=== PATIENT | female | born 2005 | race Caucasian/White ===

== ENCOUNTER 2024-03-05 05:00 | Emergency (ER) | payer BC, SELFPAY ==
[2024-03-05 05:02] VITALS: BP 135/90; PULSE 74; TEMP 36.5; O2SAT 99; BMI 36.0
--- NOTE | 2024-03-05 05:12 | ED.GENADUL1 ---
HPI HPI - General Adult General Chief complaint: Ear Stated complaint: L EAR PAIN Time Seen by Provider: 03/05/24 05:02 Source: patient Mode of arrival: walk-in Limitations: no limitations History of Present Illness HPI narrative: Otherwise healthy 18-year-old female to the emergency department chief complaint of ear pain. Patient reports left-sided ear pain over the last 24 hours. Worse throughout the night. No medications attempted at home. She has been doing a significant amount of swimming. She reports that she did have water in her ear at 1 point. She has been using [id number] ear drying drops without relief.She denies . Related Data Home Medications ?Medication ?Instructions ?Recorded ?Confirmed No Known Home Medications 03/05/24 03/05/24 Allergies Allergy/AdvReac Type Severity Reaction Status Date / Time No Known Drug Allergies Allergy Verified 03/05/24 05:06 Opioid HPI Opioid Management Most Recent Opioid Data: No Data to Display Review of Systems ROS Status of ROS 10 or more systems reviewed and unremarkable except as noted in history and below Exam Narrative Exam Narrative: VITALS: I have reviewed the triage vital signs. GENERAL: Well developed, well appearing adult in no acute distress. NEURO: Alert and oriented. Moves all extremities. Face is symmetric and expressive. EYES: PERRL. No scleral icterus or conjunctival injection. No discharge. HENT: Normocephalic, atraumatic. Hearing is grossly intact. Nares grossly patent and without discharge. Mucous membranes moist. Left external canal erythematous, discharge, small amount of debris. Right external canal normal. Both TMs without evidence of effusion. NECK: No JVD. Patient moves neck without restriction. EXTREMITIES: Symmetric muscle bulk. No joint swelling. No clubbing, cyanosis, or deformity. SKIN: Warm and dry. Normal turgor. No rash or lesions appreciated. PSYCH: Mood, affect, and interaction is appropriate to the setting. Constitutional Vital Signs, click to edit/add: Last Vital Signs Temp 97.7 F 03/05/24 05:02 Pulse 74 03/05/24 05:02 Resp 16 03/05/24 05:02 BP 135/90 03/05/24 05:02 Pulse Ox 99 03/05/24 05:02 Course Vital Signs Vital signs: Vital Signs Temperature 97.7 F 03/05/24 05:02 Pulse Rate 74 03/05/24 05:02 Respiratory Rate 16 03/05/24 05:02 Blood Pressure 135/90 03/05/24 05:02 Pulse Oximetry 99 03/05/24 05:02 Temperature 97.7 F 03/05/24 05:02 Pulse Rate 74 03/05/24 05:02 Respiratory Rate 16 03/05/24 05:02 Blood Pressure 135/90 03/05/24 05:02 Pulse Oximetry 99 03/05/24 05:02 Medical Decision Making MDM Narrative Medical decision making narrative: 18-year-old female with what appears to be uncomplicated otitis externa on the left. Ciprodex and ibuprofen. Return precautions sabrina. All questions were answered. The patient was discharged home. Discharge Plan Discharge Stand Alone Forms: Portal Instructions Chief Complaint: Ear Clinical Impression: Otitis externa Patient Disposition: Home, Self-Care Time of Disposition Decision: 05:08 Condition: Good Mode of Transportation: Private Vehicle Prescriptions / Home Meds: No Action No Known Home Medications Print Language: Portuguese Instructions: Swimmer's Ear (ED) Additional Instructions: Place 4 drops in the affected ear 2 times daily for 7 days. Use Tylenol or ibuprofen per [id number] label instructions for discomfort. Follow-up with your doctor if symptoms do not improve or worsen. Call the office of your primary care doctor to arrange for follow-up within the above-stated timeframe. Follow-up with your primary care doctor about this ED visit. You should review your labs, imaging, and diagnoses from this ED visit with your primary care physician. There may be non-emergent findings that need further evaluation. If you were prescribed medications you should discuss possible side-effects and drug interactions with your pharmacist. Call 911 or go to the nearest Emergency Department if you develop any new or worsening symptoms.
[2024-03-05] MEDS: IBUPROFEN 600 MG TABLET PO (05:35)
[2024-03-05] MEDS: CIPROFLOXACIN HCL/DEXAMETH 0.3%/0.1% OTIC SUSP 150 DROP/7.5 ML BOTTLE OT (05:35)
== END 2024-03-05 05:52 | disposition home or self-care (01) ==
PROVIDERS: Emergency Provider Student in an Organized Health Care Education/Training Program
DX: H60.92 Unspecified otitis externa, left ear (principal)
CPT/HCPCS: 99282

== ENCOUNTER 2024-06-23 09:55 | Emergency (ER) | payer BC, SELFPAY ==
[2024-06-23 09:58] VITALS: BP 133/83; PULSE 106; TEMP 36.9; O2SAT 98; BMI 37.8
--- OUTSIDE RECORDS SUMMARY | 2024-06-23 10:07 | XMS_ITS | CCD ---
Author Organization [facility] Care Team Providers Care Cutter V Groove Name Role Phone Juan M MURPHY Primary Care Physician SRUTHI WU Attending Unavailable SRUTHI WU Admitting Unavailable Xu Richmond Attending Unavailable TIFFANY, DR KWAN Admitting Unavailable TIFFANY, DR KWAN Consulting Unavailable TIFFANY, DR KWAN Attending Unavailable REQUEST, DR PERAZA LISTED Primary Care Unavaila DAMIÁN Barrios Consulting Unavailable REQUEST, DR PERAZA LISTED Primary Care Unavaila COMPA Blanca Admitting Unavailable COMPA MCLEAN Attending Unavailable RADHA CARMONA Consulting Unavailable Mell Holt Unavailable Sherine Harris Unavailable Medications Current Medications Medication Drug Class(es) Dates Sig (Normalized) Sig (Original) folic acid 0.4 mg oral tablet (1 source) take 1 tablet by dillan th every twenty-four hours Folate 400 MCG 1 tablet Orally Once a day Active Vitamin B12 1000 MCG (1 source) take 1 tablet by dillan th once daily Vitamin B12 1000 MCG 1 tablet Orally Once a day Active Completed/Discontinued Medications Medication Drug Class(es) Dates Sig (Normalized) Sig (Original) amoxicillin 500 mg oral capsule (2 sources) Penicillin-class Antibacterial Start: 10-02-2022 take 1 capsule by mouth every twelve hours Amoxicillin 500 MG 1 capsule Orally Twice a day for 10 days Sep, Not-Taking {5 (dienogest 2 MG / estradiol valerate 2 MG Oral Tablet) / 17 (dienogest 3 MG / estradiol valerate 2 MG Oral Tablet) / 2 (estradiol valerate 1 MG Oral Tablet) / 2 (estradiol valerate 3 MG Oral Tablet) / 2 (inert ingredients 1 MG Oral Tablet) } Pack [Natazia 28 Day] (1 source) Progestin, Estrogen Natazia 3/2-2/2-3/1 MG Oral for 84 Days Not-Taking {21 (ethinyl estradiol 0.035 MG / norgestimate 0.25 MG Oral Tablet) / 7 (inert ingredients 1 MG Oral Tablet) } Pack [Lena 28 Day] (2 sources) Progestin, Estrogen take 1 tablet by mouth every twenty-four hours Lena 0.25-35 MG-MCG 1 tablet Orally Once a day Not-Taking take 1 tablet by dillan th every twenty-four hours Lena 0.25-35 MG-MCG 1 tablet Orally Once a day Active Problems Active Problems Problem Classification Problem Date Documented Da te Episodic/Chronic Cardiac dysrhythmias (1 source) Palpitations; Translations: [PALPITATIONS] Onset: 10-14-2022 Episodic Nonspecific chest pain (4 sources) Chest pain, unspecified; Translations: [Other chest pain] Onset: 10-12-2022 Episodic Other screening for suspected conditions (not mental disorders or infectious disease) (1 source) No current problems or disability 03-06-2014 Episodic Other upper respiratory infections (2 sources) Acute upper respiratory infection, unspecified; Translations: [Streptococcal pharyngitis] Onset: 09-20-2022 Episodic Residual codes; unclassified (1 source) Personal history of other specified conditions Episodic Unclassified (2 sources) COUGH, UNSPECIFIED; Translations: [COUGH, UNSPECIFIED] Onset: 09-20-2022 Unclassified (1 source) CONTACT W/AND (SUSP) EXPOS COVID-19; Translations: [CONTACT W/AND (SUSP) EXPOS COVID-19] Onset: 09-20-2022 Past or Other Problems Problem Classification Problem Date Documented Da te Episodic/Chronic Unclassified (1 source) COUGH, UNSPECIFIED; Translations: [COUGH, UNSPECIFIED] Onset: 09-18-2022 Results Test Name Value Interpretation Reference Range Facility CBC AUTO DIFFon 10-12-2022 BASO # 0.1 103/ul Normal 0.0-0.1 [facility] Comment on above: Performed By: #### C BC #### [facility] [address] [address] [address] Cesar Caceres Basophils/100 WBC (Bld) 0.5 % Normal 0.2-2.0 [facility] Comment on above: Performed By: #### C BC #### [facility] [address] [place] [address] Dr. Cesar Caceres EO # 0.2 103/ul Normal 0.0-0.7 [facility] Comment on above: Performed By: #### C BC #### [facility] [address] [place] [address] Dr. Cesar Caceres Eosinophils/100 WBC (Bld) 1.4 % Normal 0.9-7.0 [facility] Comment on above: Performed By: #### C BC #### [facility] [address] [place] [address] Dr. Cesar Caceres Erythrocyte distribution width (RBC) [Ratio] 13.5 % Normal 11.0-15.0 [facility] Comment on above: Performed By: #### C BC #### [facility] [address] [place] [address] Dr. Cesar Caceres Hematocrit (Bld) [Volume fraction] 39.8 % Normal 36.0-48.0 [facility] Comment on above: Performed By: #### C BC #### [facility] [address] [place] [address] Dr. Cesar Caceres Hemoglobin (Bld) [Mass/Vol] 12.5 g/dL Normal 12.0-16.0 [facility] Comment on above: Performed By: #### C BC #### [facility] [address] [place] [address] Dr. Cesar Caceres IG # 0.03 10e3/ul Normal 0.00-0.03 [facility] Comment on above: Performed By: #### C BC #### [facility] [address] [place] [address] Dr. Cesar Caceres IG % 0.3 % Normal 0.0-0.5 [facility] Comment on above: Performed By: #### C BC #### [facility] [address] [place] [address] Dr. Cesar Caceres LYMPH # 3.0 103/ul Normal 1.2-3.8 [facility] Comment on above: Performed By: #### C BC #### [facility] [address] [place] [address] Dr. Cesar Caceres Lymphocytes/100 WBC (Bld) 28.5 % Normal 20.5-60.0 [facility] Comment on above: Performed By: #### C BC #### [facility] [address] [place] [address] Dr. Cesar Caceres MANUAL DIFF REQ NO Normal [facility] Comment on above: Performed By: #### C BC #### [facility] [address] [place] [address] Dr. Cesar Caceres MCH (RBC) [Entitic mass] 29.1 pg Normal 26.7-34.0 [facility] Comment on above: Performed By: #### C BC #### [facility] [address] [place] [address] Dr. Cesar Caceres MCHC (RBC) [Mass/Vol] 31.4 g/dL Normal 29.9-35.2 [facility] Comment on above: Performed By: #### C BC #### [facility] [address] [place] [address] Dr. Cesar Caceres MCV (RBC) [Entitic vol] 92.8 fL Normal 81.0-99.0 [facility] Comment on above: Performed By: #### C BC #### [facility] [address] [place] [address] Dr. Cesar Caceres MONO # 0.7 103/ul Normal 0.3-0.8 [facility] Comment on above: Performed By: #### C BC #### [facility] [address] [place] [address] Dr. Cesar Caceres Monocytes/100 WBC (Bld) 6.7 % Normal 1.7-12.0 [facility] Comment on above: Performed By: #### C BC #### [facility] [address] [place] [address] Dr. Cesar Caceres NEUT # 6.6 103/ul Critically high 1.4-6.5 [facility] Comment on above: Performed By: #### C BC #### [facility] [address] [place] [address] Dr. Cesar Caceres Neutrophils/100 WBC (Bld) 62.6 % Normal 43.0-75.0 [facility] Comment on above: Performed By: #### C BC #### [facility] [address] [place] [address] Dr. Cesar Caceres Platelet mean volume (Bld) [Entitic vol] 8.4 fL Critically low 9.5-13.5 [facility] Comment on above: Performed By: #### C BC #### [facility] [address] [place] [address] Dr. Cesar Caceres PLT 423 103/ul Normal 150-450 [facility] Comment on above: Performed By: #### C BC #### [facility] [address] [place] [address] Dr. Cesar Caceres RBC 4.29 106/ul Normal 4.20-5.40 [facility] Comment on above: Performed By: #### C BC #### [facility] [address] [place] [address] Dr. Cesar Caceres WBC 10.5 103/ul Normal 4.0-11.0 [facility] Comment on above: Performed By: #### C BC #### [facility] [address] [place] [address] Dr. Cesar Caceres PREG HCG QUALon 10-12-2022 , QUAL Negative Normal NEGATIVE [facility] Comment on above: Performed By: #### P REG #### [facility] [address] [place] [address] Dr. Cesar Caceres PROF 14(COMP METB)on 023 Albumin [Mass/Vol] 3.8 g/dL Normal 3.4-5.0 [facility] Comment on above: Performed By: #### C MP, TSH #### [facility] [address] [place] [address] Dr. Cesar Caceres Albumin/Globulin [Mass ratio] 1.0 {ratio} Normal [facility] Comment on above: Performed By: #### C MP, TSH #### [facility] [address] [place] [address] Dr. Cesar Caceres ALP [Catalytic activity/Vol] 59 U/L Normal 46-116 [facility] Comment on above: Performed By: #### C MP, TSH #### [facility] [address] [place] [address] Dr. Cesar Caceres ALT [Catalytic activity/Vol] 14 U/L Normal 14-59 [facility] Comment on above: Performed By: #### C MP, TSH #### [facility] [address] [place] [address] Dr. Cesar Caceres Anion gap [Moles/Vol] 13.0 mmol/L Normal [facility] Comment on above: Performed By: #### C MP, TSH #### [facility] [address] [place] [address] Dr. Cesar Caceres AST [Catalytic activity/Vol] 16 U/L Normal 15-37 [facility] Comment on above: Performed By: #### C MP, TSH #### [facility] [address] [place] [address] Dr. Cesar Caceres Bilirubin [Mass/Vol] 0.3 mg/dL Normal 0.2-1.0 [facility] Comment on above: Performed By: #### C MP, TSH #### [facility] [address] [place] [address] Dr. Cesar Caceres Calcium [Mass/Vol] 9.2 mg/dL Normal 8.5-10.1 [facility] Comment on above: Performed By: #### C MP, TSH #### [facility] [address] [place] [address] Dr. Cesar Caceres Chloride [Moles/Vol] 104 mmol/L Normal 98-107 [facility] Comment on above: Performed By: #### C MP, TSH #### [facility] [address] [place] [address] Dr. Cesar Caceres CO2 [Moles/Vol] 25.8 mmol/L Normal 21.0-32.0 [facility] Comment on above: Performed By: #### C MP, TSH #### [facility] [address] [place] [address] Dr. Cesar Caceres Creatinine [Mass/Vol] 0.70 mg/dL Normal 0.55-1.02 [facility] Comment on above: Performed By: #### C MP, TSH #### [facility] [address] [address] [address] Cesar Caceres EGFR-AF AFGHAN >60 Normal >=60 [facility] Comment on above: Performed By: #### C MP, TSH #### [facility] [address] [address] [address] Cesar Caceres EGFR-NON AF AFGHAN >60 Normal >=60 [facility] Comment on above: Performed By: #### C MP, TSH #### [facility] [address] [address] [address] Cesar Caceres Globulin (S) [Mass/Vol] 3.9 g/dL Normal [facility] Comment on above: Performed By: #### C MP, TSH #### [facility] [address] [place] [address] Dr. Cesar Caceres Glucose [Mass/Vol] 83 mg/dL Normal 74-106 [facility] Comment on above: Performed By: #### C MP, TSH #### [facility] [address] [place] [address] Dr. Cesar Caceres Potassium [Moles/Vol] 3.8 mmol/L Normal 3.5-5.1 [facility] Comment on above: Performed By: #### C MP, TSH #### [facility] [address] [address] [address] Cesar Caceres Protein [Mass/Vol] 7.7 g/dL Normal 6.4-8.2 [facility] Comment on above: Performed By: #### C MP, TSH #### [facility] [address] [place] [address] Dr. Cesar Caceres Sodium [Moles/Vol] 139 mmol/L Normal 136-145 [facility] Comment on above: Performed By: #### C MP, TSH #### [facility] [address] [address] [address] Cesar Caceres Urea nitrogen [Mass/Vol] 8.0 mg/dL Normal 6.4-19.3 [facility] Comment on above: Performed By: #### C MP, TSH #### [facility] [id number] Cesar Caceres Urea nitrogen/Creatinine [Mass ratio] 11.4 mg/mg Normal [facility] Comment on above: Performed By: #### C MP, TSH #### [facility] [id number] Cesar Caceres TSHon 10-12-2022 TSH 1.133 uIU/mL Normal 0.516-4.130 [facility] Comment on above: Performed By: #### C MP, TSH #### [facility] [address] [place], [place] [address] Dr. Cesar Caceres XR CHEST 1 Von 10-12-2022 XR CHEST 1 V EXAM: XR CHEST 1 V HISTORY: CHEST PAIN, UNSPECIFIED COMPARISON: None. FINDINGS: 1 view(s) of the chest. There is mild diffuse interstitial prominence. No pleural effusion or pneumothorax. The cardiomediastinal silhouette is normal. IMPRESSION: Mild diffuse interstitial prominence, which can be seen with pulmonary edema and/or small airways disease. Electronically authenticated by: DAMIÁN FARIA Date: 2022-10-12 16:20 Normal [facility] DHEASon 10-05-2022 DHEA-S [Mass/Vol] 280.0 microgram/dL Invalid Interpretation Code 110.0-433.2 [facility] Comment on above: Result Comment: Perf ormed at: [facility] [address] [id number] PhD Corwin Santa Performed By: #### 7 [id number], [id number], [id number], [id number], [id number], [id number] #### [facility] [address] [place] [address] Estradiolon 10-05-2022 E2 [Mass/Vol] 63.5 pg/mL Invalid Interpretation Code [facility] Comment on above: Result Comment: Adul t Female: Follicular phase 12.5 - 166.0 Ovulation phase 85.8 - 498.0 Luteal phase 43.8 - 211.0 Postmenopausal <6.0 - 54.7 1st trimester 215.0 - >4300.0 Agustin ECLIA methodology Performed at: [address] [id number] PhD Corwin Santa Performed By: #### 7 [id number], [id number], 7794580, [id number], [id number], [id number] #### [facility] [address] [place] [address] FSH and LHon 10-05-2022 Follitropin Qn 6.3 m[IU]/mL Invalid Interpretation Code [facility] Comment on above: Result Comment: Adul t Female: Follicular phase 3.5 - 12.5 Ovulation phase 4.7 - 21.5 Luteal phase 1.7 - 7.7 Postmenopausal 25.8 - 134.8 Performed at: [address] [id number] PhD Corwin Santa Performed By: #### 7 [id number], [id number], 9645650, 5247041, [id number], [id number] #### [facility] [address] [place] [address] Lutropin Qn 20.3 m[IU]/mL Invalid Interpretation Code [facility] Comment on above: Result Comment: Adul t Female: Follicular phase 2.4 - 12.6 Ovulation phase 14.0 - 95.6 Luteal phase 1.0 - 11.4 Postmenopausal 7.7 - 58.5 Performed By: #### 7 [id number], [id number], [id number], 6309737, 2527564, 32973184, [id number] #### [facility] [address] [place] [address] Insulin Lvlon 10-05-2022 Insulin Qn 22.2 u[IU]/mL Invalid Interpretation Code 2.6-24.9 [facility] Comment on above: Result Comment: Perf ormed at: [address] [id number] PhD Corwin Santa Performed By: #### 7 [id number], [id number], [id number], 8072554, 5180423, 25983950, [id number] #### [facility] [address] [place] [address] Testosterone F&Ton Testosterone [Mass/Vol] 38 ng/dL Invalid Interpretation Code [facility] Comment on above: Performed By: #### 7 [id number], [id number], [id number], 0480697, 5898705, [id number], [id number] #### [facility] [address] [place] [address] Testosterone Free [Mass/Vol] 2.4 pg/mL Invalid Interpretation Code Not Estab. [facility] Comment on above: Result Comment: Perf ormed at: [address] [id number] PhD Corwin Santa Performed at: [address] [id number] MD Malcolm Schwartz Performed By: #### 7 [id number], [id number], 65485409, 8174634, 2032764, [id number], [id number] #### [facility] [address] [place] [address] Lab Miscellaneous-LCon 10-03 Lab Miscellaneous COMMENT Invalid Interpretation Code [facility] Comment on above: Result Comment: Test Ordered: [id number] 17-OH Progesterone LCMS 17-OH Progesterone LCMS 102 ng/dL Adult Female Follicular 15 - 70 Luteal 35 - 290 This test was developed and its performance characteristics determined by [employer]. It has not been cleared or approved by the Food and Drug Administration. Performed at: [address] [id number] PhD Corwin Santa Performed By: #### 7 [id number], [id number], 99850275, 3884897, 3261032, [id number], [id number] #### [facility] [address] [facility] [place] [address] Coding Summary.on 09-30-2022 Coding Summary. CD:[id number] G h0bWw+PGhlYWQ+EE4RHJR gZ32idDVszF0GW1nOQS0N QQFSKZZHRZ2DCO6wtFD7K PvlL6EmlvGs HgfsqOYeSB48CNo7QBS2s JesCZxvnJ0djQVcY5n6Ce FgSO15mB68KXacUSGxEuS 3LjZpbjsgbWFy V5opBxJpjVFyTtc+PHRhY mxlIHdpZHRoPScxMDAlJy QbfPmaAV4dNz0tSPXiTTE vbGxhcHNlOiBj j0ltKESoEJyoNE9elQlxZ 7UxfYN0ZYNac8x3Pk96qW I+BBMrUMX3qThdAAbyc95 8ElGwp3itDXH1 vIStXKxuAPA4H81yr9R5V EXvDZKnJTV0xHB0yJ3txC nrimlmG2UarBPcJaY5GFV 2vZYraY7yoQfe ouzakF9nGjm+H01UKG1DO ZEVRZ6RCqo0F7TfZjygpH I+OG60UGNtEU16xHJihEC bx3plqKt2PsUn INZvSMJ8sYueWGtky2AuE SSbU08qeTMwi0J8EJVtqG pswHYdSgDunVH0rZ2oIFh ibowdn9plpbmw Mlvyj0sseu94zK08R16aJ AgiMTGsFNS2BYRbOHTneF aisr9gjM6sKn7+QFntb9h en4rsgEd7OjYd IOQqumFsmJkmYLP2n8HpJ t94T6CyaVelv3HaSlm5kn 67iYKtv5H1oUH0WAliFGH ofR6pKCtzCrH4 PMQsNfDteP77gREfGCulY o1ubHcrlZvaAP7nNSOuvq ocFGRnwN2aFWFzmRLeaOa yVR9rZQUrgcoz b953ArSfZPP2YKCnnQFaN 9HwfP1jVqEdNMSlHCCyO1 YaaJUvNYucS031CPwiNzK 8AUOxhkRgA0Bj HCDydUwqLcS7u4T3Ga4Ve 6MyjzcuPSM3OFcjJQKrDx RkOeFwWrS1I0IaOvw8VGM iiQwhXU2qP1Io QOXnpekkniwrsPA5BVPqX AZyxN14hHMlLAcrHg5os4 O7d712JFCzJCWeiS76Vl5 udDogMTBwdCBU mP0tmxiog6gnyiomQsWgM KKdLPu0ZUo6HIRodInrZw ExJXW7JoS4XZO4rCJbeS5 heOzkiotjpW4i Oyc+U20zuK9wOGO3ZYO1v nnwMOWwkmEdKM41ZH27H3 RyPjwvdGFibGU+PGRpdiB wyXrzVN0lAmHb d5wkb9VsMNldB6RmTLQwX TaaFub1JSKgGWZ9zHB9xY 7tJWYcHFrmv6E6lNQ1N3S lcxPalu3ja4kn AFSuTVytX43etJYcw9H5E SLjvAP3VRZksQzqVrTjoK 93Oyc+WDKhhBmje4IqDjs xr0aku7clcWn5 PnHgBMMoflFzqDxiCSM0h 7DuCo81V02vHKwtQMBaZZ BhAHXfKBPxyVaakm5kcJ8 wIi8+PGNvbCB3 cMF7sV0yZMZpRcH1WKroM 896AtLnfKWuPdcei7scp1 bolVo8IjKiECNweiIieWw eJVD3a0NlYc42 Z04iJHfjITQfMPDsQGNlC LVnsCcvig1qzZ4iFc0+PC 0mj3nqve96mI59kID+PHR yUGY7mWiyOKup SMUpnN9zZYalYyT5UQWbN lXahV83vVJjSZtiMj9qgM ufoZkyFD6nTQRbtfrlo62 8XiExo8mdISBn wQUqIBopBMQ9U81ir2Q9Q KHhRDNtMOA0cHX1nS5klI lnbjogbGVmdDsgdmVydGl zJKeeFSbyJ655 IHRvcDsnPlBhdGllbnQgT nNnFCg3B1OxQmv5KEPolI yxXK6lnHNzCMqqUy0pqUr ymSkzWQ6oODEl xvidr356FqFyg6lvZHXjj BHkHYsyBMI2H50ns8B4FQ BzMGCcGSO4mAT1yQ9xsXo nbjogbGVmdDsg iyJtwFjfKPyyLJdcT831D HRvcDsnPkJpcnRoIERhdG N3AL31LE82lYMww3D3vLN 3E2UlQWAtsnre umqshAB9GIVyJCMfoD57D f9rpKjxCi7sXQEvSDR2YW UqoSSpV5KalC9mNjBnYKX eKILnC8WaqXGq DYqkQ307HMdfPcV2BSGvc qJqT2KyCDAieFxkJbS6k1 T8Kd2WV3S8FL68NS70fQX ir2S1xHZ4V8St MRSuysdvdrxpyLA7BLQiH KVhoF88Qp2htIafSi4kSB MbQWI6WQKykTXkM8OcoT0 yOiAjMDAwMDAw Y5OemJBpFMvaH150UQesB nT1DNWmviQfE1PlKMBftZ inDwI8k4P3Jd3CJSs0UY2 3MF73oWSmu5M0 rMX2F2QsIEWdtkznfetrz YZ2WPQyCACouR34Cp3veH soWv6mFAYqVTA0PRBceHO dM0CcdC1pPdWn XBOrLJXhI9DasTSjAErpC 504DPfaRfR6SAKkarWqV8 IjLJWkiCckBwO2d4S8Dr9 IVGDrFL85BFG0 qMC9CW30TG43H5ZmUvzds GFibGU+PHRhYmxlIHdpZH RoPScxMDAlJyBzdHlsZT0 uCv3rMYVxMTTz zWgcfUAzOoHbn8ibTZDzN XihCM2uxDtbR9HdaAZ6XJ Thq0p4Yu83S06nT7BacGO +AOLcjBM0rXG9 cS3iVjDdVxV0QXddO292F mGigWYjMyzoh9ygb0jqpT y1RmR6DKTdbbQpwYptHYZ 2o6UpOs04E22p IHdpZHRoPSIxNSUiIHZhb Pxfus3nvE8pCu0+PGNvbC L2jPA6yM6fPoDjUgI2RLp tT531UdFapISm Ztgbt9ehf6bzkAc5ExHcN OWporXxaGvnGKR9l2XmFp 91M4MofKatp9RdNcq2or9 0aGEuq0P2wUD3 T4YhLSNuueuooYDnaOquW G6vYFCuwdsfKZLlcE3iOW MjS1s8QdBdVyT9HSfnO2K dxeO1FMCfrNEi NZpfKTL8Z58np4F5SWLmW KFcHUW2qFJ5kK3xuMwwnv ogbGVmdDsgdmVydGljYWw nQZsqH187PNDs tTunMVLtxK8rFDGxqYTqb YzzVP9bIOBmraivSalJYZ CYNWIoLQlDTw9UUMLKTJX 7G4SmUvk7QDTs rRdlQD6hqUFvVBjqEw6dx VmslAreVI2wRZVptjclEL MqtI5wNYXktUJeyAnfWE4 uNYNekyref295 VpXxVCN0IMZusXRuG0Lqv U9rEiMiMAEcBJYhR3JvrP AvWFbkL107XOchSbP5DHK ltwEhN1PcRBEy oJhvFjG4c9W8Qf1xRh5pO k1lCALkOA44CN10lLWqx5 J2rQO9K0IlCVRdllpgqrc stOI0GFYcQKXn oP63nHXcSCwuXo2vn8Z6z 461JXDrNTCglW85Cd8gwH wvSQOrqXGKdN6zgfluj1d vcjogIzAwMDAw QXp0JKr7OEBxsNvwXyVjY VP8RaK3QIA0dDXsdB5avZ laouvopM4fPbs+MTkgWWV cahT2A9QaZpc4 FRUwkQtuXO7zcMEvWFdnG e7csWhctBczIV6fXRZpyf vvLBIfqS0gAFNjhIXcqIx yLP6aPLQndhxa i898EiGdCUP1LXJjkRJfJ 2OoyX8xAfSvVLBgYRAsF6 EkhNBvUAmpP956ZZmzDvJ 2UXGzuqEuS3Xm JNFueImsQsJ6x6X5Mq5QR D3erHV4J2OiVrt7CHAqwO rgAB9jgXEmBRokDd2ckIl dyUmfFE2wICKg jqmdPTWobQ4eCNAaeHIwt TixTS8uOYNibxvkg126Lp WdBSQ8DLClwPRiR4NxaX9 yOiAjMDAwMDAw E0EyvWUsRKpwU969BJclX rS9FFBhcvWsT1RiQBXkfM khWvZ5a5G3Qy6IcJKwPRP mNK02AB41QX33 T1NrMpydvCBwyZJ+PHRhY mxlIHdpZHRoPScxMDAlJy PccGjxKA7bRz9gEDAlKBK vbGxhcHNlOiBj h8ghYCGkMFecUS9cgSbsX 7GmbXH0YETvu7g3Nl12H7 5fV2IpfUY+PEAyeAV9gWF 0wO4yBbUnQmQ4 UDmkA837NrImeZJiIkyvp 0lmk8vbbWb3NtThDRRcwf OilGvjZTM7l8KqHo62T01 sIHdpZHRoPSIy TYZlPTVbpLzmiz0sqT5aC i8+UFUdbRN8dHM9lM4bWi SiPbG3JSprZ784WlIpmDM pPuqeG06bF8Uw dXA+LPJrPom3KLQmyOubM U9hvWGoYNjrSb5sPMF9Sd BjLnIgTHnmC9FaXRGfkdv wvswlgNL1RXFa PYEznL70Wi1jjSyzRl2fD XAyPHZ1WLInfNZmA5HhwX 1bFmDdPHMfFZMrH1UlfXW eWNbgN131XDzw ZgN6QWUhdhOnW3DaETFyi AolIpY8v6M1Zu3HyDrvfG RkBG8fCdHiBLi6A5BnObq 3QNZmfYxiKW2y aINcSInrFa7arZtebOfhJ A0xDJHixuurr436BaVri8 odVJIprCSyJYaoICD9U49 cx3L5WCZcBDWf EKN0tMQ9cH2voNbflvvju GVmdDsgdmVydGljYWwtYW kbJ543FJKlnOpzGiJZPkf 6I7MeTtd8WZLn tTutRJ1rmAJnJGduIg0uh WcfqAsxUU8fIEJbomtgw7 49UfUvl4rjWUSnqFCxWHx pZQV2B76vn7K9 KGOkAOCoQGR2jHF9lZ3xd GlnbjogbGVmdDsgdmVydG blELmrKKjaX073ARJdhMi aNt8AIgd1A0Lz Wbl6BICddCxmJQ0crXVrM CjnFv9slZgioMhrYD8yWV Cqmdiws854SkQef7uyUQM wcHQgVGltZXM7 O90ts0G4KKYzFTHjJFX4l PO5eB8muWgxkgcrsTSdfP uavkSytDqqQMwtZQtjH99 6IHRvcDsnPlBh eWVyOjwvdGQ+QE97tq19U 6FoStbpTwn6SXQeSYA9tL I3tY5sZAKsQImif6S1xSO 0I4XbmzCzfx9s b2xs (more content not included)... Normal [facility] BhCG Quanton 09-28-2022 HCG.beta subunit Qn 1 m[IU]/mL Normal 1-3 [facility] Comment on above: Result Comment: GEST ATIONAL AGE HCG RANGE (mIU/mL) NON- <1-3 0.2-1 WEEKS 5-50 1-2 WEEKS 50-500 2-3 WEEKS 100-5,000 3-4 WEEKS 500-10,000 4-5 WEEKS 1,000-50,000 5-6 WEEKS 10,000-100,000 6-8 WEEKS 15,000-200,000 8-12 WEEKS 10,000-100,000 Performed By: #### 7 [id number], [id number], [id number], [id number] #### [facility] [address] [place] [address] CHEMISTRYOrdered By: Alicia Martin on 09-28-2022 HbA1c (Bld) [Mass fraction] 5.3 % Normal <=5.9% FT [facility] CHEMISTRYOrdered By: SYSTEM SYSTEM on 09-28-2022 HCG.beta subunit Qn 1 m[IU]/mL Normal 1 - 3 mIU/mL FTM C Remisol Progesterone [Mass/Vol] 0.50 ng/mL Invalid Interpretation Code [facility] Remisol TSH Qn 1.53 m[IU]/L Normal 0.34 - 5.60 mcIU/mL [facility] Remisol Consent for Treatmenton 09-18 Consent for Treatment [id number]#1 .00CD:[address] [facility] KxcN0agw 09-28-2022 HbA1c (Bld) [Mass fraction] 5.3 % Normal <=5.9 [facility] Comment on above: Performed By: #### 7 [id number], [id number], [id number], [id number], [id number] #### [facility] [address] [place] [address] Lab Miscellaneous-LCon 09-28 Test Code 035147 Invalid Interpretation Code [facility] Comment on above: Performed By: #### 7 [id number], [id number], [id number], 8719507, [id number], [id number] #### [facility] [address] [place] [address] Test Name 17 progesterone Invalid Interpretation Code [facility] Comment on above: Performed By: #### 7 [id number], [id number], [id number], [id number], [id number], [id number] #### [facility] [address] [place] [address] Physician Orderon 09-28-2022 Physician Order [id number]# 1.00CD:[address] [facility] Progesteroneon 09-28-2022 Progesterone [Mass/Vol] 0.50 ng/mL Invalid Interpretation Code [facility] Comment on above: Result Comment: REFE RENCE RANGE Males 0.14-2.06 ng/mL Non- Females Follicular 0.10-0.60 ng/mL Luteal 3.00-17.5 ng/mL Midluteal 3.30-18.6 ng/mL Post-Menopausal 0.10-0.40 ng/mL First Trimester 8.30-66.5 ng/mL Second Trimester 18.9-66.1 ng/mL Third Trimester 35.8-312.4 ng/mL Performed By: #### 7 [id number], [id number], [id number] #### [facility] [address] [place] [address] Reference Laboratory Testing Ordered By: Belkys García on 09-28-2022 Test Code [id number] Invalid Interpretation Code [facility] SendAj Test Name 17 progesterone Invalid Interpretation Code [facility] Pedro TSHon 09-28-2022 TSH Qn 1.53 m[IU]/L Normal 0.34-5.60 [facility] Comment on above: Performed By: #### 7 [id number], [id number] #### [facility] [address] [place] [address] [facility]on SARS-CoV-2 (COVID-19) RNA MICAH+probe Ql (Unsp spec) Not detected Normal NOT DETECTED [facility] Comment on above: Result Comment: This test is not yet approved or cleared by the [place] FDA. When there are no FDA-approved or cleared tests available, and other criteria are met, FDA can make tests available under an emergency access mechanism called an Emergency Use Authorization (EUA). The EUA for this test is supported by the Supervisor Steno Pool of Health and Human Service's (HHS's) declaration that circumstances exist to justify the emergency use of in vitro diagnostics for the detection and/or diagnosis of the virus that causes COVID-19. This EUA will remain in effect (meaning this test can be used) for the duration of the COVID-19 declaration justifying emergency of IVDs, unless it is terminated or revoked by FDA (after which the test may no longer be used). When diagnostic testing is negative, the possibility of a false negative should be considered in the context of a patient's recent exposures and the presence of clinical signs and symptoms consistent with SARS-CoV-2. Performed By: #### C VDTB #### [facility] [address] [place], [place] [address] Dr. Cesar Caceres INFLUENZA A AND B AGon 09-18 INFLUANEGH SEE BELOW Normal [facility] Comment on above: Result Comment: Nega tive for Flu A protein angiten. Infection due to Flu A cannot be ruled out. Flu A angiten in the sample may be below the detection limit of the test. Performed By: #### I NFLUAB #### [facility] [address] [place] [address] Dr. Cesar Caceres [facility] SEE BELOW Normal [facility] Comment on above: Result Comment: Nega tive for Flu B protein antigen. Infection due to Flu B cannot be ruled out. Flu B antigen in the sample may be below the detection limit of the test. Performed By: #### I NFLUAB #### [facility] [address] [place] [address] Dr. Cesar Caceres INFLUENZA A AG Negative Normal NEGATIVE SEE COMMENT [facility] Comment on above: Performed By: #### I NFLUAB #### [facility] [address] [place] [address] Dr. Cesar Caceres INFLUENZA B AG Negative Normal NEGATIVE SEE COMMENT [facility] Comment on above: Performed By: #### I NFLUAB #### [facility] [address] [place] [address] Dr. Cesar Caceres Coding Summary.on 12-20-2021 Coding Summary. CD:[id number] G h0bWw+PGhlYWQ+KH3MURC sQ89xpTSciL6GG2hTZW7S PYFEMEEDAK0MIR3zbDM4D PxfC0ZignSz JvzjhTYoHG61VXz4WGI1f ChuGFojdQ0slMCeY2t0Hf FqOA01kN94EItlLNBdJnZ 3LjZpbjsgbWFy H3imMnTfnIQgBle+PHRhY mxlIHdpZHRoPScxMDAlJy ObpAbqQO1oLt3uFSWpGIH vbGxhcHNlOiBj x5atNQTjMUodLQ3vtPzjA 9OcaYZ8MZWgd3d9Op84jZ I+HYWzCNM4lHiiVDgky51 5IrXcs6mcELF7 lMTwKNvaAAV1H84vl6L0Q NMxVDCnDZX8pKH4cN3wqR cmomzwL3MriZLlZeY3WMD 8kLMdgR3ouPuv kbpkxB3pXeg+D81HJB0XC UDXYP7YXza4N1BiVqksaM I+AN61QDDcUY48rTYdkPX un8avtJp7DvKy MUZuRGR1zTzrEJmka1WjE FBeT66akPLry5L5EJZbdG dahHCgQkQnoXT6rG5bBYc nlndee0fjfwor Gwjdi8yqzn77eI09S18oK MabYOXxRHL0EWVzNXTjjK unza9jeK9lPy5+TGujo5v hf6kmeWl2MnRo KKHztuSogMptWTC5s9ErO y31J1OihAmfg2DoZme9mq 11lPQoj2C4nPX8NLaxHGE ljF6gDEnyWbY7 CRFoKpTzmY52eMJmRVmvP n4yuKzabGsnKH7bUPWzbu lkRCCpnO9mCNGdfFOunXp zUE4iJEPgxtkp w081NaOqTPH3UTAyzHIlC 8ZwnD2uHjBsGXTwCSYeY8 WzuFBgEBbqN108PRoqTeX 0ORMdhsDtV8Ph FYMehYyvZtU3k2X7Tv7Ij 3InmbrdUWD1NRemJJJ1Tv C9WyMyLvO1Q2ZlSai1PCA pkTduBZ2uC9Ie NOShynkzthsirKL4CUQeN AEavP81qWGlULyxIw0vy0 T0h486DHQpEJExjQ09Wg3 udDogMTBwdCBU rC5fvxflj0zcpfziXhKbN JAcONo5RLq9BDXtkDgvHc SgLPH2XpC6IKQ0vGReiE4 qdFzylrshxM1t Oyc+X06njW0aAHB1PXC5v ibcNUFaeaZxYX41YR52P6 RyPjwvdGFibGU+PGRpdiB lsXawJS6mCyJt a2nvb1KeTGdwO5WiZZArZ EvsNfr3BWQlXNZ6nGU8tS 4zSOTtLServ6X3lMC2Q2F fbwOmsi1cm8en UODgQVdpB30flOMhq5E8M CWicZZ0JTHrgKyiJkQovG 93Oyc+BUAmgXjbq0UeXds sw3byp2fbxZq7 TnLtRQWaucEyiYhzKAI8h 1ZzGf38N62iCZxgIHEqFR SyLIEiAGQfiBwrkt6vtX6 wIi8+PGNvbCB3 jSL5rR8zYOToBrC3NLgyB 958CqGbyDFpTbtua9ari7 uwiUy1ByTpAIDzaqFcjXm rZOY7o5RiZc02 K65eRBldYPEcVOZeBHLgH YXmeTrsgw3irO0eCs1+PC 2ez1pjpt86pR58zVY+PHR rOXG4wRejEIsi NHMmvX8pWVarSaJ7RURaE jFgbR47iCHgWBpyWr5kiH sxnBwmRG1zNSSbmzurb74 9KqAyn9qdBNWn nKGpDRlbBBE7M00dl4T5R EFdJUByXQN0dQS1nO3fnB lnbjogbGVmdDsgdmVydGl gXGacNHwmZ464 IHRvcDsnPlBhdGllbnQgT cEyGRz1G7PhCam4IJOwdJ ksIU2lxTHcMVqhRz7pkOl etArzNX0yCMDd rgdze694MkEzr2ohHOPtg QRzFNwvOMD1P42ty4R9ZS RhZRYfYHY3rZO7uE0lmPm nbjogbGVmdDsg jxEyyXwbLDarEVbrL838T HRvcDsnPkJpcnRoIERhdG N3MC71XH73kCExi7X6tDX 8V2AgOJEvtdmr vmsoiNO8OZGqABBqkD46G i0weSrvHm6rJPFfTIN3GI IutYEnM4XgdQ9uKxMiXMD hNDZkD8JbcSQw DDpaY656BJxiGeA6ESAeb jZpX3JuRJXzwSbiAwB2r8 X9Na4RB1Y4PK46HM37aWH qs3P0iVP3N5Tg LFXupfdgctfhxGT9CYRyU FAhgP04Lk6daJcsDc1fBU WmBIR9IEHbtLLhJ7KsnE3 yOiAjMDAwMDAw M8OomYXqGMkpY325GTbwO sZ3FMVqekFtZ8TzZDEcuU xtMkX2m2L3Us4DYCr9GH6 6VY58jPHpp1Y7 cMV5F1JmMONbmhhafzetj AX5OTGcKKFabN78Hs2pwU rsPc5fZLPiECA4IZVumTY uU2QgyM0bCoJv KQJpTHGjT5MwyUDpQEklF 912HBukJeT0CFYwdcTdN7 VbIFBmaReeUkJ8z6E8Fn2 TMZMhKF72KUL2 aUI9JK76YW37I3RmKwvcl GFibGU+PHRhYmxlIHdpZH RoPScxMDAlJyBzdHlsZT0 bRj5mBRRjIVRe nWhfjDIuDiBma0dhULLrG FdaPV7voDxwO7YvwTQ8HX Ygh1j8Pu54L99gX9XudOE +FYCeoOT0xIA7 xI5aLrKvPkL6GYtrV512K bLobULjFvqeu3jya8rzqG r1BkA9YILgfpCmmAmfHUE 1g2CwAd52U13y IHdpZHRoPSIxNSUiIHZhb Crnis6fnE7pOb5+PGNvbC I9rLI8rT7sWnGbIbC9QSr pA593ZeStqLXa Osfww3izl0cddMh9YvVgU XSbifRjhNfxOPK8f4HsOl 56M5JkrVquf4YqDep3wa9 7yULwo5K0uIR7 S9KwGEZojpoodKEshAcvE R9rBMXwdooyRMMboZ7tLY ToP0y8AlVpMjT0ETenR1C mxpN1PMZkgAId RCweUOZ4J56ej1R7IPTqF MGjBIA7zYO0uQ3ghRpuvy ogbGVmdDsgdmVydGljYWw sGOrpR312DEEy kPrnNRXqoC9gLEUflETyv ZmhXV1qBFTebpmtDonVNS EUNZKqGAiQJw0VQLMZILF 3O6KeJsl0VXYx dBvfBM3ggGVzKIghLd4df XezqPjjJQ4iASFcpmoxID ZenJ1cBAMvrCDpiNlpMW8 wWTWucundy090 FrXpSUP1OAMbhWDhN6Wbd V2fHfPbEUOgBIWdP4KyiN QtGKtdG059OZprZlG5OUL qszBuN0MrTQNb iBysPdL8t8L4Fe0nOc2mY k9sMWToVT98GZ38tEIuk3 Z2wBS9T0XzAJVxqwawqlq qbAA8LKVhKEIq rO55oHErQYxpNx2lj3L6s 663VMThCRIrfF64Yo5lmA cvCGSmpMJLoB2dlrces2g vcjogIzAwMDAw FDi1HJz9QUGsgUuvGgRrC SM2UqW4IOR2rFWlrO5lpK qvgxbeuS5mIqr+MTggWWV uomI4K7JuKnl3 ABYseBffWW7lwFQuBFrhD n7hpDxvhRixED3tCVGomf pySLYsvY1sIJNswWLpuGz zXT9qWTOlmlrb l622PsCyEAD1GCCnhSLcH 0FtcY0yAeWjHTMmRQYfX0 QprSKxYEaoN834IPcwDsN 1NKWtabEkI3Xi PEKbcOnzDcT1r3F6Su5PE X4evOD0E8ZsFva9VCYrdK txWY6gxZOiUWmsZo8znNc wmSzoXC9sMGCm uavcIKOtoH9aGPXemLVxu UerDQ2oHIVmrlajp098Fl LgEHZ6GJOxyLOsP1NtjA2 yOiAjMDAwMDAw T2FbkSUqLEgkC842MCahS nG5WKIecqAzC9JuMAGfxH ylPfZ2h3X1Cx8IwFSeX9R uU2u8B6KjHjdk dHI+FL59UFZvTW76uMHqo QTmj1ynbCd5FlUhHYVyYY N0xJsoODyzn3LxUUXyI75 lgOCbo0S4TCPz eWcmpCQjWcLsuQD7gN7eB Vczeyeos5beegitXuarb7 rllw06jH46G78wFMiqDQW oPSIzMCUiIHZh nUcvog0zeZ2qPw0+PGNvb OG3mWQ9nZ1pYgMrMkG6ID paB218NmJufLHzPqaeo4v zb1gvrYh6PqGp WPAdtrJamSozOND4l2IgU b66R04eJJjuSSAkPQVbEK FdHBBeqMmnoi3azM0nWu6 +CS0kg0jaja20 mE37rOK+DQFoQZZ4pVxkS TwbREAklO4nFHyrXwV8IC ViDrQbjR37tDNgNAfcLc4 duTzouIelHJ0m FJXfxliau847FkZog3oaO BAldFOsVMwjVTW2B44kq4 O1FWLiPNRcPHO4gJH0lQ8 hbGlnbjogbGVm dDsgdmVydGljYWwtYWxpZ 946TRVzeWqqHcUswMIiB2 bhyySIUM9pViektIN+PHR qWKX7tTbhNNem LMDpvA1qJSPoY3f7QrHyC qF9CWfhJ7TjioA4ILJqcM TsJWKvmRORcT6sosiqc6o vcjogIzAwMDAw GTb4LDm9EEYacSbvBiFhE AJ4XgJ6FUG6wMMctA3ajV otfkntpO6kIko+RklOOjw vdGQ+PHRkIHN0 vPbzDLguPQAztD8iWYDxI 3f7DhBwVtO9ZQwyS9Kdkh O4EZLolJKfOLOvsJGPuE8 kpbqju6gomynz ZwReWHEaDFl4VVn3KXMfx GzaKvQaKYB2LbM5IZP7kB SljY1chYxdwtwqsG2jNrr +TVJOOjwvdGQ+ SCIsODR1pPqhRXshAUAsi U4bCSLiL2f7FpPhAaU3GM qcJ8MktkN7NOGfeGKhXRA puYQNvB9tcjkr s0qnaufqGtUiIUSdLNp7I Rf9XXXijMahVyGkZGC4Fp I1OIW4iYAclS0wsOezzvu vaT2dCkt+UGF5 JDF0XY36OC31V9WbKvaqv GFibGU+PHRhYmxlIHdpZH RoPScxMDAlJyBzdHlsZT0 nJi2iGAUyKJWa bGxh (more content not included)... Normal [facility] Consent for Treatmenton Consent for Treatment [id number]#1 .00CD:[address] [facility] Discharge Instructionson Discharge Instructions [id number] 1.00CD:[address] [facility] ED Clinical Summaryon 2021 ED Clinical Summary [address] [address] ED Clinical Summary Person Information Name: KAL ZUNIGA TANVI [facility]ious/[facility] Age: 16 Years : 2005 Sex: Female Language: Cymro PCP: Juan M MURPHY DO, FAAFP Marital Status: Single Phone: [phone] Visit Id: Visit Reason: Weakness or fatigue; Body aches; Headache; CHILLS, BODY ACHES Speciality: Acuity: 3 Enc Type: Emergency Med Service: Emergency Arrival: 12/18/2021 21:59:41 Discharge: 12/19/2021 01:07:07 LOS: 000 03:08 Checkin: 12/18/2021 21:59:41 Checkout: 12/19/2021 01:07:07 Dispo Type: Home (Routine DC) EVENTS: Event Name Event Status Request Date/Time Start Date/Time Complete Date/Time Arrive Complete 12/18/2021 21:59:41 12/18/2021 21:59:41 12/18/2021 21:59:41 Document Home Meds Request 12/18/2021 21:59:41 Triage Complete 12/18/2021 21:59:41 12/18/2021 22:11:55 12/18/2021 22:11:55 Bed Assign Complete 12/18/2021 22:03:21 12/18/2021 22:03:21 12/18/2021 22:03:21 Dr Exam Complete 12/18/2021 22:03:21 12/18/2021 22:18:43 12/18/2021 22:18:43 RN Exam Complete 12/18/2021 22:03:21 12/18/2021 22:16:06 12/18/2021 22:16:06 EKG Cancel 12/18/2021 22:10:03 12/19/2021 00:46:43 Pending Labs Complete 12/18/2021 22:17:30 12/18/2021 23:10:10 Swab Complete 12/18/2021 22:17:30 12/18/2021 23:10:00 Lab Complete 12/18/2021 22:17:30 12/18/2021 23:10:10 Pending Labs Complete 12/18/2021 22:17:51 12/18/2021 23:11:30 Lab Complete 12/18/2021 22:17:51 12/18/2021 23:11:30 Urine Collect Complete 12/18/2021 22:17:51 12/18/2021 23:11:30 Registration Complete 12/18/2021 22:18:43 12/18/2021 22:29:51 12/18/2021 22:29:51 Pending Labs Complete 12/18/2021 22:19:36 12/18/2021 23:39:33 Lab Complete 12/18/2021 22:19:36 12/18/2021 23:39:33 Dr Exam Complete 12/18/2021 22:21:19 12/18/2021 22:21:19 12/18/2021 22:21:19 Patient Care Complete 12/18/2021 22:23:08 12/18/2021 23:04:55 Meds Admin Request 12/18/2021 22:23:08 Reg Complete Request 12/18/2021 22:29:51 Reg Bed Request Complete 12/18/2021 22:29:51 12/18/2021 22:29:51 12/18/2021 22:29:51 Pending Labs Inlab 12/18/2021 23:00:48 12/18/2021 23:00:48 Meds Admin Complete 12/18/2021 23:47:49 12/19/2021 00:07:55 Discharge Complete 12/19/2021 00:48:47 12/19/2021 01:07:15 12/19/2021 01:07:15 Transfer Complete 12/19/2021 01:07:15 12/19/2021 01:07:15 12/19/2021 01:07:15 ADDRESS: [address] [place] [phone] PHYS DOC NOTES: MEDICAL INFORMATION: Prescriptions Given: PATIENT EDUCATION INFORMATION: Instructions: Migraine Headache, Wqkw-wg-[id number] Follow up: With: Address: When: Juan M Harrison, [facility] [place] [address] Business (1) In 3 days 12/22/2021 DIAGNOSIS: 1:Migraine headache Normal [facility] ED Note-Physicianon 12-20-19 ED Note-Physician Basic Information Time Seen: Diane George PA-C 12/18/2021 22:18 Chief Complaint Pt report having headache that started yesterday and took excedrin migraine and TERRELL went away. today developed TERRELL and took excerdrin migraine about 1999, assoc with sensativity to light and now has body aches History of Present Illness Patient presents to the emergency department with chief complaint of a headache. She states it started yesterday. She took migraine Excedrin and it went away. The headache started again today. She took the migraine Excedrin with no help. She states now she is having sensitivity to light, nausea, and body aches. She denies any fevers chills or sweats. No vomiting. No urinary burning frequency urgency. Denies . The family member states that the patient has had headaches intermittently over the years and very rarely needs to come to the ER. Patient does not take any other medications. She is not allergic to anything. Review of Systems Constitutional: Denies weight loss, fevers, chills, sweats, malaise Eyes: Denies visual changes, eye pain, double vision, scotomas, floaters ENT: Denies runny nose, epistaxis, sinus pain, ear pain, ringing in ears, tooth ache, sore throat, pain with swallowing Cardiovascular: Denies chest pain, shortness of breath, orthopnea, edema, palpitations, loss of consciousness, claudication Respiratory: Denies cough, sputum production, wheezing, hemoptysis, shortness of breath, dyspnea on exertion Gastrointestinal: Denies abdominal pain, unintentional weight loss, difficulty swallowing, indigestion, bloating, cramping, loss of appetite, nausea, vomiting, diarrhea, constipation, hematochezia, melena Genitourinary: Denies any incontinence of urine, dysuria, hematuria, nocturia, polyuria, hesitancy, frequency, urgency, burning Musculoskeletal: Denies joint pain, morning stiffness, joint swelling, decreased range of motion, crepitus Integumentary: Denies any pruritus, rashes, lesions, wounds, petechiae Neurologic: Denies any changes in sight, smell, hearing, taste, seizures, paresthesia, numbness, weakness, balance disturbance. + headache, light sensitivity Psychiatric denies any depression, change in sleep patterns, anxiety, difficulty concentrating, paranoia, anhedonia, lack of energy, robert Hematologic/lymphatic : Denies any purpura, petechiae, excessive bleeding, bruising Physical Exam Vitals & Measurements T: 38 ?C(Oral) HR: 95(Monitored) RR: 16 BP: 114/71 SpO2: 99% HT: 162.0 cm HT: 162 cm WT: 87.7 kg WT: 87.7 kg BMI: 33.42 Vital signs and nursing notes reviewed. General: Awake, alert, NAD. HEENT: Head is normocephalic, atraumatic. PERRL. EOMI. Sclerae are anicteric. External ears are normal. TMs are intact bilaterally. Canals are clear bilaterally. Nares are patent bilaterally. Oral mucosa is pink and moist. No lesions noted. Tongue protrudes in midline. Uvula rises with phonation. Neck is supple, no no palpable adenopathy. No JVD. Trachea is midline. Thorax: Symmetrical rise and fall Lungs: Clear to auscultation throughout all montoya, no wheezes, no crackles Heart: Regular rate and rhythm. No murmur, gallop, or rub Abdomen: No tenderness on palpation. Bowel sounds are present active and normal. No organomegaly. No palpable masses. No CVA tenderness. Extremities: Motor sensory pulses intact x4 extremities. No lower extremity edema. Skin: No lesions, rashes, ulcerations. No bruising or petechiae. Color appropriate, warm and dry Neuro: No oriented x3, no focal neuro deficits Psych: Mood and affect are normal Medical Decision Making Migraine headache, viral illness, strep pharyngitis, URI, influenza, COVID-19, mononucleosis Assessment/Plan 1. Migraine headache (G43.909: Migraine, unspecified, not intractable, without status migrainosus) Orders: diphenhydrAMINE, 50 mg = 1 mL, Injection, IV Push, Once, Stop date 12/18/21 23:47:00 EDT, STAT, Start date 12/18/21 23:47:00 EDT, 12/18/21 23:47:00 EDT metoclopramide, 10 mg = 2 mL, Injection, IV Push, Once, Stop date 12/18/21 23:47:00 EDT, STAT, Start date 12/18/21 23:47:00 EDT, 12/18/21 23:47:00 EDT Sodium Chloride 0.9% intravenous solution 1,000 mL, 1,000 mL, IV, 1,000 mL/hr, STAT, Start date 12/18/21 22:22:00 EDT, 1 hour(s), Total volume (mL): 1,000, 87.7 kg, 1.99, m2 Group A Strep by PCR Mononucleosis Screen Rapid Strep w/rfx Saline Lock Insert Patient was interviewed and examined. The appropriate ER work-up has been initiated. Patient is given IV fluid hydration. Patient is given Reglan 10 mg and Benadryl 50 mg IV. Patient had complete resolution of her symptoms with this. Rapid strep, mononucleosis, influenza swabs were all negative. test was negative rapid Covid test was negative UA was unremarkable. I discussed the discharge diagnosis, plan of care, need for follow-up with the primary care physician. The patient will be discharged home in stable condition. She is to return to the emergency department for any furt (more content not included)... Normal [facility] Comment on above: Result Comment: Elec tronically Signed By: Diane George PA-C\.br\Date and Time Signed: 12/19/21 01:03 EDT\.br\Electronically Co-Signed By: Xu Richmond DO\.br\Date and Time Co-Signed: 12/19/21 07:58 EDT\.br\Electronically Co-Signed By: Juan M MURPHY DO, FAAFP\.br\Date and Time Co-Signed: 12/22/21 15:43 EDT ED Patient Education Noteon 12-19-2021 ED Patient Education Note Neurology Migraine Headache A migraine headache is a very strong throbbing pain on one side or both sides of your head. This type of headache can also cause other symptoms. It can last from 4 hours to 3 days. Talk with your doctor about what things may bring on (trigger) this condition. What are the causes? The exact cause of this condition is not known. This condition may be triggered or caused by: ? Drinking alcohol. ? Smoking. ? Taking medicines, such as: ? Medicine used to treat chest pain (nitroglycerin). ? control pills. ? Estrogen. ? Some blood pressure medicines. ? Eating or drinking certain products. ? Doing physical activity. Other things that may trigger a migraine headache include: ? Having a menstrual period. ? . ? Hunger. ? Stress. ? Not getting enough sleep or getting too much sleep. ? Weather changes. ? Tiredness (fatigue). What increases the risk? ? Being 25?55 years old. ? Being female. ? Having a family history of migraine headaches. ? Being . ? Having depression or anxiety. ? Being very overweight. What are the signs or symptoms? ? A throbbing pain. This pain may: ? Happen in any area of the head, such as on one side or both sides. ? Make it hard to do daily activities. ? Get worse with physical activity. ? Get worse around bright lights or loud noises. ? Other symptoms may include: ? Feeling sick to your stomach (nauseous). ? Vomiting. ? Dizziness. ? Being sensitive to bright lights, loud noises, or smells. ? Before you get a migraine headache, you may get warning signs (an aura). An aura may include: ? Seeing flashing lights or having blind spots. ? Seeing bright spots, halos, or zigzag lines. ? Having tunnel vision or blurred vision. ? Having numbness or a tingling feeling. ? Having trouble talking. ? Having weak muscles. ? Some people have symptoms after a migraine headache (postdromal phase), such as: ? Tiredness. ? Trouble thinking (concentrating). How is this treated? ? Taking medicines that: ? Relieve pain. ? Relieve the feeling of being sick to your stomach. ? Prevent migraine headaches. ? Treatment may also include: ? Having acupuncture. ? Avoiding foods that bring on migraine headaches. ? Learning ways to control your body functions (biofeedback). ? Therapy to help you know and deal with negative thoughts (cognitive behavioral therapy). Follow these instructions at home: Medicines ? Take omzz-mjf-gdqykwf and prescription medicines only as told by your doctor. ? Ask your doctor if the medicine prescribed to you: ? Requires you to avoid driving or using heavy machinery. ? Can cause trouble pooping (constipation). You may need to take these steps to prevent or treat trouble pooping: ? Drink enough fluid to keep your pee (urine) pale yellow. ? Take yspz-die-opgpcjl or prescription medicines. ? Eat foods that are high in fiber. These include beans, whole grains, and fresh fruits and vegetables. ? Limit foods that are high in fat and sugar. These include fried or sweet foods. Lifestyle ? Do not drink alcohol. ? Do not use any products that contain nicotine or tobacco, such as cigarettes, e-cigarettes, and chewing tobacco. If you need help quitting, ask your doctor. ? Get at least 8 hours of sleep every night. ? Limit and deal with stress. General instructions ? Keep a journal to find out what may bring on your migraine headaches. For example, write down: ? What you eat and drink. ? How much sleep you get. ? Any change in what you eat or drink. ? Any change in your medicines. ? If you have a migraine headache: ? Avoid things that make your symptoms worse, such as bright lights. ? It may help to lie down in a dark, quiet room. ? Do not drive or use heavy machinery. ? Ask your doctor what activities are safe for you. ? Keep all follow-up visits as told by your doctor. This is important. Contact a doctor if: ? You get a migraine headache that is different or worse than others you have had. ? You have more than 15 headache days in one month. Get help right away if: ? Your migraine headache gets very bad. ? Your migraine headache lasts longer than 72 hours. ? You have a fever. ? You have a stiff neck. ? You have trouble seeing. ? Your muscles feel weak or like you cannot control them. ? You start to lose your balance a lot. ? You start to have trouble walking. ? You pass out (faint). ? You have a seizure. Summary ? A migraine headache is a very strong throbbing pain on one side or both sides of your head. These headaches can also cause other symptoms. ? This condition may be treated with medicines and changes to your lifestyle. ? Keep a journal to find out what may bring on your migraine headaches. ? Contact a doctor if you get a migraine headache that is different or worse than other (more content not included)... Normal [facility] ED Patient Summaryon 022 ED Patient Summary [place] [id number] Patient Discharge Instructions Person Information Name: KAL ZUNIGA Age: 16 Years Arrival Date: 12/18/2021 21:59:41 Discharge Diagnosis: 1:Migraine headache Primary Care Physician: Juan M MURPHY DO, FAAFP Provider Information Primary Provider: Xu Richmond DO Advanced Human Resource Statistician:None The exam and treatment you received in the Emergency Department were for an urgent problem and are not intended as complete care. It is important that you follow up with a doctor, nurse practitioner, or physician?s assistant track and field coach for ongoing care. If your symptoms become worse or you do not improve as expected and you are unable to reach your usual health care provider, you should return to the Emergency Department. We are available 24 hours a day. KAL ZUNIGA has been given the following list of patient education materials, prescriptions and follow-up instructions: Follow-up Instructions: With: Address: When: Juan M MURPHY [address] [place] [address], [facility] [place] [address] [facility] (1) In 3 days 12/22/2021 In the event that this physician does not participate in your insurance network, please consult with your insurance company to find a nearby participating provider. Patient Education Materials: Migraine Headache, [id number] A MESSAGE TO ALL PATIENTS REGARDING OPIOIDS PRESCRIPTION OPIOIDS: WHAT YOU NEED TO KNOW Prescription opioids can be used to help relieve [id number] pain and are often prescribed following a surgery or injury, or for certain health conditions. These medications can be an important part of the treatment but also come with serious risks. It is important to work with your healthcare provider to make sure you are getting the safest, most effective care. WHAT ARE THE RISKS AND SIDE EFFECTS OF OPIOID USE? Prescription opioids carry serious risks of addiction and overdose, especially with prolonged use. An opioid overdose, often marked by slowed breathing, can cause sudden . The use of prescription opioids can have a number of side effects as well, even when taken as directed: ? Tolerance?meaning you might need to take more of the medication for the same pain relief ? Physical dependence?meaning you have symptoms of withdrawal when a medication is stopped ? Increased sensitivity to pain ? Constipation ? Nausea, vomiting, and dry mouth ? Sleepiness and dizziness ? Confusion ? Depression ? Low levels of testosterone that can result in lower sex drive, energy, and strength ? Itching and sweating RISKS ARE GREATER WITH: ? History of drug misuse, substance use disorder, or overdose ? Mental health conditions (such as depression or anxiety) ? Sleep apnea ? Older age (65 years and older) ? Avoid alcohol while taking prescription opioids. Also, unless specifically advised by your health care provider, medications to avoid include: ? Benzodiazepines (such as Xanax or Valium) ? Muscle relaxants (such as Soma or Flexeril) ? Hypnotics (such as Ambien or Lunesta) ? Other prescription opioids KNOW YOUR OPTIONS Talk to your health care provider about ways to manage your pain that don?t involve prescription opioids. Some of these options may actually work better and have fewer risks and side effects. Options may include: ? Pain relievers such as acetaminophen, ibuprofen, and naproxen ? Some medication that are also used for depression or seizures ? Physical therapy and exercise ? Cognitive behavioral therapy, a psychological, goal-directed approach, in which patients learn how to modify physical, behavioral, and emotional triggers of pain and stress. IF YOU ARE PRESCRIBED OPIOIDS FOR PAIN: ? Never take opioids in greater amounts or more often than prescribed. ? Follow up with your primary health care provider. o Work together to create a plan on how to manage your pain. o Talk about ways to help manage your pain that don?t involve prescription opioids. o Talk about any and all concerns and side effects. ? Help prevent misuse and abuse o Never sell or share prescription opioids. o Never use another person?s prescription opioids. ? Store prescription opioids in a secure place and out of reach of others (this may include visitors, children, friends, and family). ? Safely dispose of unused prescription opioids: Find your community drug take-back program or your pharmacy mail-back program, or flush them down the toilet, following guidance from the Food and Drug Administration (www.fda.gov/Drugs/Re sourcesForYou). ? Visit www.cdc.gov/drugoverd ose to learn about the risks of opioids abuse and overdose. ? If you believe you may be struggling with addiction, tell your health field care advocate and ask for guidance or call SAMHSA?S National Helpline at 3-210-953-GMZR. v Source: U (more content not included)... [facility] Grp A Strp PCRon 12-19-2021 Grp A Strp Intrl Ctrl Pass [facility] Comment on above: Order Comment: Order Added on by Discern Rule. Performed By: #### 7 [id number], [id number], [id number], [id number], [id number], [id number], [id number] #### [facility] [address] [place] [address] S. pyogenes rRNA Probe Ql (Unsp spec) Negative Normal [facility] Comment on above: Order Comment: Order Added on by Discern Rule. Result Comment: Test ing performed using DNA amplification. Performed By: #### 7 [id number], [id number], [id number], [id number], [id number], [id number], [id number] #### [facility] [address] [place] [address] Influenza A&B Agon 2 Influenzae A Ag Negative Normal Negative [facility] Comment on above: Performed By: #### 2 [id number], [id number] #### [facility] [address] [place] [address] Influenzae B Ag Negative Normal Negative [facility] Comment on above: Result Comment: Test sensitivity and specificity vary for age group, specimen type, antigen types, and prevalence of disease. Test results must be evaluated in conjunction with other clinical data available to the physician. Individuals who received nasally administered Influenza A vaccine may have positive test results up to 3 days after vaccination. Performed By: #### 2 [id number], [id number] #### [facility] [address] [place] [address] [place] Screenon 12-19-2021 Heterophile Ab LA Ql (S) Negative Normal Negative [facility] Comment on above: Performed By: #### 2 [id number] #### [facility] [address] [place] [address] Rapid COVID Antigen ([facility])on 12-19-2021 Rapid COV Int NEG Ctl Pass Normal [facility] Comment on above: Performed By: #### 2 [id number], [id number] #### [facility] [address] [place] [address] Rapid COV Int POS Ctl Pass Normal [facility] Comment on above: Performed By: #### 2 [id number], [id number] #### [facility] [address] [place] [address] SARS-CoV+SARS-CoV-2 (COVID-19) Ag IA.rapid Ql (Resp) Not detected Normal Not Detected [facility] Comment on above: Result Comment: The [employer]? System for Rapid Detection of SARS-CoV-2 is a chromatographic digital immunoassay intended for the direct and qualitative detection of SARS-CoV-2 nucleocapsid antigens in nasal swabs from individuals who are suspected of COVID-19 by their healthcare provider within the first five days of the onset of symptoms. Negative results should be treated as presumptive, do not rule out SARS-CoV-2 infection and should not be used as the sole basis for treatment or patient management decisions, including infection control decisions. Negative results should be considered in the context of a patient?s recent exposures, history and the presence of clinical signs and symptoms consistent with COVID-19, and confirmed with a molecular assay, if necessary, for patient management. For in vitro diagnostic use. In the [place], only for use under an Emergency Use Authorization. In the [place], this test has not been FDA cleared or approved; this test has been authorized by FDA under an EUA for use by authorized laboratories; use by laboratories certified under the CLIA, 42 U.S.C. ?263a, that meet requirements to perform moderate, high, or waived complexity tests and at the Point of Care (POC), i.e., in patient care settings operating under a CLIA Certificate of Waiver, Certificate of Compliance, or Certificate of Accreditation. This test has been authorized only for the detection of proteins from SARS-CoV-2, not for any other viruses or pathogens; and, in the [place], this test is only authorized for the duration of the declaration that circumstances exist justifying the authorization of emergency use of in vitro diagnostics for detection and/or diagnosis of the virus that causes COVID-19 under Section 564(b)(1) of the Act, 21 U.S.C. ? 360bbb-3(b)(1), unless the authorization is terminated or revoked sooner. Performed By: #### 2 [id number], [id number] #### [facility] [address] [place] [address] ADMITTED TO INTENSIVE CARE UNIT FOR CONDITION OF INTEREST:FIND:PT: NO Normal [facility] Comment on above: Performed By: #### 2 [id number], [id number] #### [facility] [address] [place] [address] EMPLOYED IN A HEALTHCARE SETTING:FIND:PT: NO Normal [facility] Comment on above: Performed By: #### 2 [id number], [id number] #### [facility] [address] [place] [address] FIRST TEST FOR CONDITION OF INTEREST:FIND:PT: NO Normal [facility] Comment on above: Performed By: #### 2 [id number], [id number] #### [facility] [address] [place] [address] HAS SYMPTOMS RELATED TO CONDITION OF INTEREST:FIND:PT: YES Normal [facility] Comment on above: Performed By: #### 2 [id number], [id number] #### [facility] [address] [place] [address] HOSPITALIZED FOR CONDITION OF INTEREST:FIND:PT: NO Normal [facility] Comment on above: Performed By: #### 2 [id number], [id number] #### [facility] [address] [place] [address] STATUS:FIND:PT: NO Normal [facility] Comment on above: Performed By: #### 2 [id number], [id number] #### [facility] [address] [place] [address] RESIDES IN A [facility] CARE SETTING:FIND:PT: NO Normal [facility] Comment on above: Performed By: #### 2 [id number], [id number] #### [facility] [address] [place] [address] Rapid Strep w/rfxon 12-20-19 22 S. pyogenes Ag IA.rapid Ql (Throat) Negative Normal Negative [facility] Comment on above: Performed By: #### 7 [id number], [id number], [id number], [id number], [id number], [id number], [id number] #### [facility] [address] [place] [address] U BetaHcg Qualon 12-19-2021 HCG.beta subunit (U) [Moles/Vol] Negative Normal [facility] Comment on above: Performed By: #### 2 [id number], [id number] #### [facility] [address] [place] [address] UA With Cult Reflexon 2021 Bacteria LM Ql (Urine sed) TRACE Normal Trace [facility] Comment on above: Performed By: #### 2 [id number], [id number] #### [facility] [address] [place] [address] Bilirubin Ql (U) Negative Normal Negative [facility] Comment on above: Performed By: #### 2 [id number], [id number] #### [facility] [address] [place] [address] Clarity (U) SL CLOUDY Abnormal Clear [facility] Comment on above: Performed By: #### 2 [id number], [id number] #### [facility] [address] [place] [address] Color (U) YELLOW Normal Yellow [facility] Comment on above: Performed By: #### 2 [id number], [id number] #### [facility] [address] [place] [address] Crystals LM Ql (Urine sed) Present Normal [facility] Comment on above: Performed By: #### 2 [id number], [id number] #### [facility] [address] [place] [address] Epithelial cells.squamous LM.HPF (Urine sed) [#/Area] 5-8 Normal 0-2 [facility] Comment on above: Performed By: #### 2 [id number], [id number] #### [facility] [address] [place] [address] Glucose Test strip (U) [Mass/Vol] Negative Normal Negative [facility] Comment on above: Performed By: #### 2 [id number], [id number] #### [facility] [address] [place] [address] Hemoglobin Ql (U) Negative Normal Negative [facility] Comment on above: Performed By: #### 2 [id number], [id number] #### [facility] [address] [place] [address] Ketones (U) [Mass/Vol] 1+ Abnormal Negative [facility] Comment on above: Performed By: #### 2 [id number], [id number] #### [facility] [address] [place] [address] [place].plasma/Lithi um.RBC (Bld) [Mass ratio] 0-3 Normal 0-3 [facility] Comment on above: Performed By: #### 2 [id number], [id number] #### [facility] [address] [place] [address] Mucus Ql (Urine sed) 2+ Normal [facility] Comment on above: Performed By: #### 2 [id number], [id number] #### [facility] [address] [place] [address] Nitrite Ql (U) Negative Normal Negative [facility] Comment on above: Performed By: #### 2 [id number], [id number] #### [facility] [address] [place] [address] pH (U) 6.0 [pH] Invalid Interpretation Code 5.0-9.0 [facility] Comment on above: Performed By: #### 2 [id number], [id number] #### [facility] [address] [place] [address] Protein (U) [Mass/Vol] 1+ Abnormal Negative [facility] Comment on above: Performed By: #### 2 [id number], [id number] #### [facility] [address] [place] [address] Specific gravity (U) [Rel density] >=1.030 Invalid Interpretation Code 1.005-1.030 [facility] Comment on above: Performed By: #### 2 [id number], [id number] #### [facility] [address] [place] [address] Type of Urine collection method Clean Catch Normal [facility] Comment on above: Performed By: #### 2 [id number], [id number] #### [facility] [address] [place] [address] Urobilinogen Qn (U) 0.2 {Nayana'U}/dL Normal 0.0-1.0 [facility] Comment on above: Performed By: #### 2 [id number], [id number] #### [facility] [address] [place] [address] WBC Auto Ql (U) Negative Normal Negative [facility] Comment on above: Performed By: #### 2 [id number], [id number] #### [facility] [address] [place] [address] WBC LM.HPF (Urine sed) [#/Area] 0-5 Normal 0-5 [facility] Comment on above: Performed By: #### 2 [id number], [id number] #### [facility] [address] [place] [address] Vital Signs Date Time Vital Sign Value Performing Clinician Facility 01-04-2023 16:35-0400 Body height 162.56 cm Sherine Harris Other [facility] Other 01-04-2023 16:35-0400 Body mass index (BMI) [Ratio] 33.81 kg/m2 Sherine Harris Other [facility] Other 01-04-2023 16:35-0400 Body temperature 98.4 [degF] Sherine Harris Other [facility] Other 01-04-2023 16:35-0400 Body weight 89.36 kg Sherine Harris Other [facility] Other 01-04-2023 16:35-0400 Diastolic blood pressure 81 mm[Hg] Sherine Harris Other [facility] Other 01-04-2023 16:35-0400 Respiratory rate 18 /min Sherine Harris Other [facility] Other 01-04-2023 16:35-0400 SaO2% (BldA) [Mass fraction] 99 % Sherine Harris Other [facility] Other 01-04-2023 16:35-0400 Systolic blood pressure 127 mm[Hg] Sherine Harris Other [facility] Other 10-02-2022 13:10-0500 Body height 162.56 cm Mell Holt Other [facility] Other 10-02-2022 13:10-0500 Body mass index (BMI) [Ratio] 32.61 kg/m2 Mell Holt Other [facility] Other 10-02-2022 13:10-0500 Body temperature 98.7 [degF] Mell Holt Other [facility] Other 10-02-2022 13:10-0500 Body weight 86.18 kg Mell Holt Other [facility] Other 10-02-2022 13:10-0500 Diastolic blood pressure 74 mm[Hg] Mell Holt Other [facility] Other 10-02-2022 13:10-0500 SaO2% (BldA) [Mass fraction] 98 % Mell Holt Other [facility] Other 10-02-2022 13:10-0500 Systolic blood pressure 122 mm[Hg] Mell Holt Other [facility] Other Encounters Encounter Date Encounter Type Care Provider Facility Start: 06-05-2024 End: 06-05-2024 ambulatory Not Available Start: 05-15-2024 End: 05-15-2024 ambulatory Not Available Start: 01-04-2023 End: 01-04-2023 ambulatory Sherine Harris Other [facility] Other Start: 01-04-2023 Office outpatient visit 15 minutes Sherine Harris [facility] Start: 10-12-2022 End: 10-12-2022 ambulatory DAMIÁN FARIA Facility:[facility] Start: 10-02-2022 End: 10-02-2022 ambulatory Mell Holt Other [facility] Other Start: 10-02-2022 Office outpatient ne w 30 minutes Mell Holt [facility] Start: 09-28-2022 End: 09-29-2022 ambulatory SRUTHI WU Facility:[facility] Start: 09-28-2022 End: 09-28-2022 Patient encounter procedure SRUTHI WU [facility] Start: 09-18-2022 End: 09-18-[address] ANIYA ALLEN Facility:[facility] Start: 12-18-2021 End: 12-19-2021 Emergency department patient visit Xu [place] Facility:[facility] Procedures Date Procedure Procedure Detail Performing Clinician Denies SRUTHI WU Payers Date Payer Category Payer Unknown 2003 Unknown [id number] 2.16.8 [id number] 2003 Unknown [id number] 2.16.8 [id number] 2003 Unknown [id number] 2.16.84 [id number] 2003 Unknown [id number] 2.16.84 [id number] 2003 Unknown [id number] 2.16.84 [id number] 2003 Unknown [id number] 2.16.84 [id number] 2003 Unknown [id number] 2.16.84 [id number] 1959 Unknown [id number] Social History Date Type Detail Facility Tobacco smoking status [facility] Sex Assigned At Female [facility] Evaluation note 01-04-2023 Note Date & Type Note Facility 01-04-2023 Evaluation note Encounter Date Diagnosis Assessment Notes Dec, History of headache (ICD-10 - Z87.898) Drink plenty fluids, get plenty of rest. Take Excedrin Migraine as needed for your headaches. Get established with a family practice physician and get in to be seen and evaluated for your headaches as soon as possible. You may return to work tomorrow Patient denies any headache at this time. States she had one in middle of the night last night and resolved with Excedrin Migraine. She denies any photophobia or nausea. She does not have a PCP, has never seen a physician or neurologist for her headaches. Dec, Other Headache: migraine material was printed [facility] Other Evaluation note 10-02-2022 Note Date & Type Note Facility 10-02-2022 Evaluation note Encounter Date Diagnosis Assessment Notes Sep, Strep pharyngitis (ICD-10 - J02.0) Advised patient that strep test was positive. Reviewed allergies and recent antibiotic use. Instructed patient to take antibiotic as prescribed, with food and plenty of water, complete entire course even if feeling better. Advised patient that they are contagious for 24 hours after starting antibiotic. Discussed infection control and good hand hygiene. New tooth brush in 2-3 days after starting antibiotic. Supportive care as directed. Push fluids and rest, Tylenol or Motrin as needed for fever or discomfort, warm salt water gargles, throat lozenges as needed. Patients symptoms should improve in the next 48 hours, eval by PCP or UC if symptoms have not improved with treatment. Discussed in depth warning symptoms that require immediate eval. Patient verbalizes understanding and is agreeable to treatment plan [facility] Other Evaluation + Plan note 09-28-2022 Note Date & Type Note Facility 09-28-2022 Evaluation + Plan note Diagnostic Tests PendingInsulin Level Total 09/28/22DHEAS 09/28/22Testosterone F&T 09/28/22Estradiol Level 09/28/22FSH and LH 09/28/22 [facility] History general Narrative - Reported Note Date & Type Note Facility History general Narrative - Reported Type Hospitalization History concussion [facility] Other History general Narrative - Reported Note Date & Type Note Facility History general Narrative - Reported Type Medical History PCOS (polycystic ovarian syndrom e) Hospitalization History concussion [facility] Other Hospital course Narrative Note Date & Type Note Facility Hospital course Narrative No data available for this section [facility] Hospital Discharge instructions Note Date & Type Note Facility Hospital Discharge instructions No data available for this section [facility] Progress note Note Date & Type Note Facility Progress note No data available for this section [facility] Summary Purpose Family History No Family History Records FoundNo Family History Records FoundNo Family History Records Found Advance Directives No Advanced Directives Records FoundNo Advanced Directives Records FoundNo Advanced Directives Records Found Additional Source Comments Patient Care team informatio n (unrecognized section and content) Personnel Name: Juan M MURPHY DO, FAAFP Address: Address: [address] [place] [address] [address] [place], [place] [address] INFORMATION SOURCE (unrecogn ized section and content) DATE CREATED AUTHOR 10/06/2022 [facility] DATE CREATED AUTHOR AUTHOR'S ORGANIZ ATION 10/14/2022 [facility] DATE CREATED AUTHOR AUTHOR'S ORGANBARBI ATION 06/07/[address] [facility] EPIC REASON FOR VISIT (unrecogniz ed section and content) NAUSEA, HEADACHE, FATIGUEMIG JAVIER FOR RECORDS PERTAINING TO PATIENTS WHO ARE OR HAVE BEEN ENROLLED IN A CHEMICAL DEPENDENCY/SUBSTANCEABUSE PROGRAM, SOME INFORMATION MAY BE OMITTED. This clinical summary was aggregated from multiple sources. Caution should be exercised in using it in the provision of clinical care. This summary normalizes information from multiple sources, and as a consequence, information in this document may materially change the coding, format and clinical context of patient data. In addition, data may be omitted in some cases. CLINICAL DECISIONS SHOULD BE BASED ON THE PRIMARY CLINICAL RECORDS. [facility] [employer] provides no warranty or guarantee of the accuracy or completeness of information in this document.
--- NOTE | 2024-06-23 10:24 | ED_ITS ---
HPI HPI - General Adult General Chief complaint: Headache Stated complaint: HEADACHE 11 WEEKS Time Seen by Provider: 06/23/24 10:24 Source: patient Mode of arrival: walk-in History of Present Illness HPI narrative: Patient presented to the emergency department for evaluation of migraine. Patient states that she has a history of migraines, gets them once a month. States can last a day or 2, takes an Excedrin and then they go away. Patient states she has been getting migraines monthly since she was in the ninth grade. States she had a typical migraine for her. Started yesterday approximately 4 P M, gradual in onset, gradually worsening, not the first or worst headache of her life. Patient states has been slowly getting worse throughout the day, now has a full-blown migraine, lights and sounds are bothering her. States that she is feeling nauseated, vomiting. He does not help that she is currently . Patient states that she is approximately 11 weeks , G1, P0. Follows wi th an OB, already had an ultrasound. Has not been evaluated for migraines by her applications systems engineer, by her adult physician, by a neurologist, by her OB. States she is comes to the emergency department, get medication, if her Excedrin does not work. Patient states that because she is she did not take the Excedrin, and did not want us to do so she came here. He is tolerating oral intake, states that the headache is currently moderate, 7 out of 10. States the entire head, worse on the right, which is typically how her migraines feel for her. Nothing changed or different for her. No other at this time Related Data Home Medications ?Medication ?Instructions ?Recorded ?Confirmed No Known Home Medications 03/05/24 06/23/24 Allergies Allergy/AdvReac Type Severity Reaction Status Date / Time No Known Drug Allergies Allergy Verified 03/05/24 05:06 Opioid HPI Opioid Management Most Recent Opioid Data: Last Pain Scale 9 06/23/24 10:38 Last MAR Pain Assessment 06/23/24 10:38 Review of Systems ROS Narrative Negative unless otherwise stated in the HPI PFSH PFSH Social History Little interest or pleasure in doing things: not at all Feeling down, depressed, or hopeless: not at all Exam Narrative Exam Narrative: General: NAD, AAOx3, no distress Eyes: PERRL, EOMI, lids/conjunctiva normal. HEENT: NCAT, mmm Neck: Supple, no LAD,no bruit, nonmeningeal Respiratory: respiratory effort normal, speaks in full sentences, no tripod position, no accessory muscle use. Lungs clear to auscultation without rhonchi, wheezes, rales Cardiac: Regular rate and rhythm, no edema, regular s1/s2, no m/g/r Abdomen: Soft, ND/NT. No evidence of fluid wave. No pulsatile masses on exam, rebound tenderness, Knapp sign or pain over Mcburney's point. Neuro: Speech is clear and appropriate. Normal level of consciousness. Gait and coordination are normal. 5/5 strength in all extremities. Constitutional Vital Signs, click to edit/add: Last Vital Signs Temp 98.5 F 06/23/24 09:58 Pulse 106 H 06/23/24 09:58 Resp 18 06/23/24 09:58 BP 133/83 06/23/24 09:58 Pulse Ox 98 06/23/24 09:58 O2 Del Method Room Air 06/23/24 09:58 Course Vital Signs Vital signs: Vital Signs Temperature 98.5 F 06/23/24 09:58 Pulse Rate 106 H 06/23/24 09:58 Respiratory Rate 18 06/23/24 09:58 Blood Pressure 133/83 06/23/24 09:58 Pulse Oximetry 98 06/23/24 09:58 Oxygen Delivery Method Room Air 06/23/24 09:58 Temperature 98.5 F 06/23/24 09:58 Pulse Rate 106 H 06/23/24 09:58 Respiratory Rate 18 06/23/24 09:58 Blood Pressure 133/83 06/23/24 09:58 Pulse Oximetry 98 06/23/24 09:58 Oxygen Delivery Method Room Air 06/23/24 09:58 Medical Decision Making MDM Narrative Medical decision making narrative: [facility] Patient with history as above presented with headache. History obtained from patient. Patient was nontoxic, stable. Ambulatory. Exam as above. Reviewed external records. Differential diagnosis considered. Overall presentation is consistent with headache 1106 patient was reevaluated at this time. States that her headache has almost fully resolved is approximately a 1 or 2 out of 10. Pt who presents for headache. Patient on exam, was well appearing and no distress. On exam was completely neuro intact without acute deficits. Exam and history at this time do not suggest meningitis, sub-arachnoid hemorrhage, intra- cranial mass, stroke, infection or acute intra-cranial process. Given radiation risk and benign exam, CT imaging has been deferred. Although, should patient continue to have persistent headaches, may warrant an outpatient MRI. Patient at this time stable for close PCP follow up. Advanced guidance has been given. Vss, pex is benign at this time. Pt to fu with pcp 1-2 days for reeval, rter should sx worsen, persist or become worrysome in any way. Pt expressed understanding and agreement with plan of care at this time. Will fu as planned. Pt stable for discharge. Medical Records Medical records reviewed: Yes I reviewed the patient's medical records Discharge Plan Discharge Chief Complaint: Headache Clinical Impression: Headache Patient Disposition: Home, Self-Care Time of Disposition Decision: 11:05 Condition: Good Prescriptions / Home Meds: No Action No Known Home Medications Print Language: [place] Instructions: Acute Headache (DC) Additional Instructions: Follow-up with your OB on Monday as discussed. Return to the emergency men tion symptoms worsen or become worrisome to you in any way. Referrals: Physician,Non-Staff, MD [Primary Care Provider] - 1 week
[2024-06-23] MEDS: ONDANSETRON 4 MG RAPDIS TABLET SL (10:37)
[2024-06-23] MEDS: DIPHENHYDRAMINE HCL 50 MG/ML VIAL IM (10:37)
[2024-06-23] MEDS: ACETAMINOPHEN 325 MG TABLET 650 MG PO (10:38)
[2024-06-23 11:09] VITALS: PULSE 84; O2SAT 99
== END 2024-06-23 11:09 | disposition home or self-care (01) ==
PROVIDERS: Emergency Provider Emergency Medicine
DX: O26.891 Other specified pregnancy related conditions, first trimester (principal); R51.9 Headache, unspecified; Z3A.11 11 weeks gestation of pregnancy
CPT/HCPCS: 96372; 99284; J1200; Q0162